=== PATIENT | male | born 1945 | race Caucasian/White ===

== ENCOUNTER → 2017-02-27 | Outpatient (CLI) | payer OTHER ==
[~2017-02-27] MED LIST: AMAN100T PO; ASCO500T16 PO; ASCO500T3 PO; ASPI325T39 PO; ATOR10TA82 PO; CMP/10 PO; FEXO5TAB2 PO; FLUT0.15 NAE; GABA1CAP5 PO; GLUC10007 PO; GLUCTAB7 PO; IPRA1AER2 INH; LEVO100T7 PO; LEVO1TAB33 PO; LEVO25TA5 PO; LEVO75TA5 PO; ONDA8TAB6 PO; PRED10TA PO; PRLSR20 PO; SALM50AE2 INH; SPRIN/30 INH; SRVDIN60 INH; TIOTCAP INH
--- NOTE | 2017-02-28 09:25 | DIAGNOSTIC IMAGING REPORT ---
PET/CT CLINICAL HISTORY: Head and neck cancer. TECHNIQUE: A PET/CT was performed from the skull vertex through the upper thighs following intravenous injection of 11.45 mCi of F 18 FDG IV. The injection was performed at 10:29 AM on February 27, 2017 and imaging began at 11:32 AM on February 27, 2017. Unenhanced CT was performed for attenuation correction purposes and anatomic localization. COMPARISON STUDY: PET/CT March 23, 2016. FINDINGS: Head and neck: No suspicious FDG uptake is identified within the neck. The FDG avid right level 2 mass shown on exam of March 23, 2016 is no longer visualized. There is subtle infiltration within the right aspect of the neck. This is likely post therapeutic. No mucosal lesion is identified although these may be occult by CT. Diffuse uptake within the thyroid gland which is enlarged is unchanged and prior exam. No enlarged cervical lymph nodes are present. Chest: No suspicious FDG uptake is identified within the chest. There are calcified left hilar lymph nodes. Mild symmetric FDG uptake within bilateral hilar lymph nodes is unchanged since prior PET/CT. No suspicious pulmonary nodules are present. Abdomen and Pelvis: No abnormal FDG uptake is identified within the abdomen or the pelvis. A gastrostomy tube is in place. There is no abdominal or pelvic lymphadenopathy. Musculoskeletal: No suspicious skeletal uptake is identified. IMPRESSION: No evidence for recurrent FDG avid malignancy. Electronically signed by: Ramón Ridley M.D. 02/28/2017 9:23 AM Dictated Date/Time: 02/27/2017 12:47 PM
== END | disposition home or self-care (01) ==
LOC: C.PET 09:21
PROVIDERS: ATTEND Physician Assistant Medical
DX: C09.8 Malignant neoplasm of overlapping sites of tonsil (principal)

== ENCOUNTER → 2017-03-08 | Outpatient (CLI) | payer OTHER ==
[2017-03-08 13:43] VITALS: BP 104/56; PULSE 66; TEMP 36.7; O2SAT 95
--- NOTE | 2017-03-08 15:55 | Radiation Oncology Follow-Up ---
Radiation Oncology Follow-Up Date of Visit Mar 08, 2017. (Lizzy Barnett PA-C) Reason For Visit Four-month follow-up (Lizzy Barnett PA-C) Radiation Completion Date finished 09-06-2016 (Lizzy Barnett PA-C) Diagnosis (1) Head and neck cancer Onset Date: 03/10/2016 Stage: lll Permanent Comment: STAGING: Oropharynx, right tonsil, SCC, p16 positive, [id number], stage III TREATMENT: 1. Robotic tonsillectomy (TORS) - 04/15/2016 - Dr. Topete 2. Right neck dissection - 05/02/2016 - Dr. Topete 3. Status post completion of radiation therapy 09/06/2016 received 6000 cGy Last Edited By: Lizzy Barnett on Nov 08, 2016 16:46 (Lizzy Barnett PA-C) History of Present Illness Mr. Lincoln is a 71-year-old gentleman with a smoking history who recently presented with right-sided neck pain and had an MRI of the cervical neck completed on 01/27/2016 which did reveal a some degenerative changes in the spine as well as spinal stenosis and more importantly revealed a 2.2 cm nodule in the right neck. He subsequently underwent a CT of the neck on 02/08/2016 which showed subtle thickening of the right posterior oral pharyngeal mucosa as well as confirmation of a 2.8 cm nonenhancing right level IIa mass consistent with a pathologic lymph node. No other cervical adenopathy was noted on the CT scan. The patient was referred to Dr. Lepe from ENT who recommended a interventional radiology guided biopsy. The patient was taken for an ultrasound -guided biopsy in 03/10/2016 which confirmed a well-differentiated squamous cell carcinoma. He subsequently underwent a PET/CT scan on 03/23/2016 which revealed: "1. A 17 x 20 mm soft tissue density in the anterior right neck posterior to the submandibular gland and likely corresponding to the lesion recently biopsied by ultrasound. This demonstrates significant FDG avidity and is presumably neoplastic. 2. Diffuse nonspecific activity within the thyroid bilaterally of questionable significance. 3. Slight increased activity in both hilar regions likely related to central pulmonary vessels." The patient subsequently saw the multidisciplinary prospective head and neck cancer clinic on 04/07/2016. The final recommendation was for consideration of a transoral robotic resection if the right tonsil came back positive and also a potential right neck dissection. Of note, the plan was to initially do random biopsies as it was still a unknown primary with the high likelihood that the right tonsil was positive and the patient within subsequently undergo a transoral robotic surgery which was completed on 04/15/2016. The patient underwent a transoral robotic resection of the right tonsil on 04/15/2016 after the biopsy of the right tonsil came back positive for squamous cell carcinoma. Pathology revealed squamous cell carcinoma that was p16 positive that involved the right tonsil. The pathology specimen did not specifically mention margin status otherwise. The patient then subsequently underwent a right neck dissection on 05/02/2016 which included levels 1B, 2A-4, 2B, 1A. A total of 31 lymph nodes were resected. Pathology revealed one positive lymph node in level 2A that measured 2.7 cm in the greatest dimension with no evidence of extranodal extension or positive margins. The case was subsequently discussed at the head and neck tumor board and the recommendation was for adjuvant radiation therapy based on the interpretation of the primary surgical resection specimen and the positive cervical lymph node in the right neck. We are now seeing the patient in consultation to discuss the role of radiation therapy. Currently, the patient doing relatively well overall. He states he is healing up well from surgery. He is on a solid diet again. His weight is increasing. His appetite is good overall. He has regained taste. He does have some soreness in his right neck from surgery still. Otherwise he is doing well overall. Patient underwent adjuvant radiation therapy and was completed 09/06/2016. He received 6000 cGy (Lizzy Barnett PA-C) Interim History Over the past 4 months he has slowly increased his energy levels. He still does have significant fatigue. He states he is improved by 20%. He had stopped into the office a week ago to discuss his PET scan results. We reviewed how he was doing from a nutrition standpoint. He had been taking in nearly 100% of his nutrition through the PEG tube. I reviewed with him that he would need to cut back in order to begin to eat on his own. This would allow him to have a feeling of hunger and want to eat on his own. He has cut back on the tube feeding and is beginning to eat more on his own. He did have a mild weight loss. He increased the tube feeding. He'll continue to try to take in more by mouth. He is not having difficulty with coughing or choking. He does take small bites into his food well. He also drinks water to rinse the fluid down. He did have a swallow study that showed no aspiration when he was at [facility]. His thyroid function study did show that he has hypothyroidism. Dr. Cordero has started replacement and the medication has been increased once. He is for recheck laboratory studies in March. He saw Dr. Topete 12/19/2016. He states that he was pleased with his outcome. Patient continues to decline scopings. He refused to allow Dr. Topete to perform scoping examination. And he stated he'll will not allow our office also to perform scoping examinations. He stated that his PET scan is normal therefore he is satisfied with that evaluation. (Lizzy Barnett PA-C) Allergies Coded Allergies: No Known Allergies (Unverified , 07/07/16) Home Medications Scheduled Ascorbic Acid (Ascorbic Acid), 1,000 MG PO DAILY Aspirin (Aspirin Ec), 0.5 TAB PO DAILY Atorvastatin (Lipitor), 0.5 TAB PO DAILY Gabapentin (Neurontin), 1 CAP PO BID Glucosamine Sulfate (Glucosamine), 1,000 MG PO BID Levothyroxine Sodium (Levothyroxine Sodium), 1 TAB PO DAILY Prednisone Tab (Prednisone), 10 MG PO DIRECTED Salmeterol Xinafoate Inh (Serevent Diskus Inh), 1 PUFF INH BID Tiotropium [place] (Spiriva Handihaler), 1 CAP INH DAILY Scheduled PRN Fexofenadine-Pseudoephedrine (Kya-D 12 Hour Allergy), 1 TAB PO BID PRN for Nasal Congestion Ipratropium-Albuterol (Combivent Respimat), 1 PUFFS INH QID PRN for SOB/Wheezing Levofloxacin (Levaquin), 500 MG PO DAILY PRN for Shortness of Breath Omeprazole (Prilosec), 20 MG PO DAILY PRN for Indigestion Review of Systems Gastrointestinal: Symptoms: Vomiting GI Comments: was having vomiting due to thick mucus in throat , getting better Oral: Symptoms: Scant Saliva/Dry Mouth, Saliva amt. Increased, Thick/Viscid/Mucid Saliva Other Oral Symptoms: baking soda and salt water mouth rinses 2 times a day Respiratory: Symptoms: SOB With Exertion Other Respiratory: " I have COPD " Urinary: Symptoms: Nocturia Comments: nocturia 0- 1 times Skin: Symptoms: No Problems Other Skin Symptoms: " skin feels tight on right side of neck " (Lizzy Barnett PA-C) Physical Exam Vital Signs Date Time Temp Pulse Resp B/P Pulse Ox O2 Delivery O2 Flow Rate FiO2 03/08/17 13:43 36.7 66 20 104/56 95 Pain: Side: Bilateral Patient Pain Scale: 0 - 10 Initial Pain Intensity: 0.0 Fatigue: None General Appearance: no apparent distress Eyes: normal inspection, EOMI ENT: normal ENT inspection, hearing grossly normal, TMs normal, + pertinent finding (trismus which causes difficulty with examination of the pharynx.) Neck: no adenopathy, thyroid normal Respiratory/Chest: lungs clear, no respiratory distress, no accessory muscle use Cardiovascular: regular rate, rhythm, no gallop, no murmur Neurologic/Psychiatric: no motor/sensory deficits, alert, normal mood/affect Skin: warm/dry Lymphatic: no adenopathy (Lizzy aBrnett PA-C) Additional Studies Patient: AMILCAR LINCOLN Address1: [address] [place] [address] Rec: [id number] Address2: Acct ID: [id number] [facility] Zip: [place] [address] Date: 1945 Sex: M Room/Bed: Ref Phy: Mendez Cordero D.O. SC: C.PET Att Phy: Lizzy Barnett PA-C Report #: [id number] [place] Phy: Mendez Cordero D.O. Test: PETCTST Admit Phy: Music Supervisor: JAMARI Interpreting Phy: Ramón Ridley MD Diagnosis: HEAD AND NECK CA Ordering Phy: Lizzy Barnett PA-C Service Date: 02/27/17 Admit Date: 02/27/17 MNE: [id number] CONF: DICTATED BY: Ramón Ridley MD]] CC: Lizzy Barnett PA-C Sulman, Scott A., D.O. Endcc: [~ rep ct add3]] PET/CT CLINICAL HISTORY: Head and neck cancer. TECHNIQUE: A PET/CT was performed from the skull vertex through the upper thighs following intravenous injection of 11.45 mCi of F 18 FDG IV. The injection was performed at 10:29 AM on February 27, 2017 and imaging began at 11:32 AM on February 27, 2017. Unenhanced CT was performed for attenuation correction purposes and anatomic localization. COMPARISON STUDY: PET/CT March 23, 2016. FINDINGS: Head and neck: No suspicious FDG uptake is identified within the neck. The FDG avid right level 2 mass shown on exam of March 23, 2016 is no longer visualized. There is subtle infiltration within the right aspect of the neck. This is likely post therapeutic. No mucosal lesion is identified although these may be occult by CT. Diffuse uptake within the thyroid gland which is enlarged is unchanged and prior exam. No enlarged cervical lymph nodes are present. Chest: No suspicious FDG uptake is identified within the chest. There are calcified left hilar lymph nodes. Mild symmetric FDG uptake within bilateral hilar lymph nodes is unchanged since prior PET/CT. No suspicious pulmonary nodules are present. Abdomen and Pelvis: No abnormal FDG uptake is identified within the abdomen or the pelvis. A gastrostomy tube is in place. There is no abdominal or pelvic lymphadenopathy. Musculoskeletal: No suspicious skeletal uptake is identified. IMPRESSION: No evidence for recurrent FDG avid malignancy. Electronically signed by: Ramón Ridley M.D. 02/28/2017 9:23 AM Dictated Date/Time: 02/27/2017 12:47 PM (Lizzy Barnett PA-C) Assessment & Plan Plan: Patient was seen and examined today by Dr. Shanks. He did have a vasovagal episode in our office when having examination of the neck. His vital signs were repeated every 5 minutes. The syncopal episode resolved without difficulty. Serial blood pressures were 121/64, 113/55, and 166/68. Serial pulses were 73, 74, and 71. Also oximetry was 99%, 99%, 98%. This occurred with the patient sitting in a chair. He did not fall or have any injury from this episode. We had previously reviewed his PET/CT. He is going to continue to cut back on tube feedings and take more nutrition by mouth. He will continue to follow his weight closely. He is going to have a recheck of the thyroid function study in March. is adjusting the thyroid medication. His daughter was with him here today. She had access to his [facility] information. We reviewed his thyroid function studies. He is currently concerned also about tremor he has of the left hand. He previously had B-12 injections. We reviewed his most recent CBC which did not show any signs of B-12 deficiency. I've asked him to review this issue with . He did have a carotid Doppler studies prior to treatment. This showed no stenosis. We'll plan to recheck again at some point in the future. We asked him to return to our office in 6 months. He will have a recheck CT of the neck prior to that visit. (Lizzy Barnett PA-C) Of note, during clinical evaluation of left neck adenopathy, the patient suffered a near vasovagal syncopal episode from massaging the left carotid body but returned to normal within one minute. Vital signs were checked initially and then again 5 minutes later and they were all within normal limits. The patient was alert, oriented x 3 and had no focal neurologic symptoms or deficits. The patient was reassured prior to leaving the department. I agree with note created by Lizzy Barnett PA-C. I reviewed the patient's chart and information with her. I have examined and evaluated the patient. I reviewed relevant clinical information and answered the patient's and/or family' s questions. (Veeral. Shanks MD) Total Time In Follow-Up I spent 25 minutes speaking to the patient performing examination. I spent 15 minutes reviewing information in completing this note. (Lizzy Barnett PA-C) I spent 15 minutes examining and counseling the patient. (Veeral. Shanks MD) Copy To Waldo Topete D.O.; Mendez Cordero D.O.
== END | disposition home or self-care (01) ==
LOC: C.ONC 13:37
PROVIDERS: ATTEND Physician Assistant Medical
DX: Z08 Encounter for follow-up examination after completed treatment for malignant neoplasm (principal); Z92.3 Personal history of irradiation; Z85.89 Personal history of malignant neoplasm of other organs and systems

== ENCOUNTER → 2017-08-07 | Day surgery (SDC) | payer OTHER ==
[2017-07-21 13:24] VITALS: Ht 171.5 cm; Wt 71.4 kg
[~2017-08-07] VITALS: Ht 171.5 cm; Wt 71.4 kg
[~2017-08-07] MED LIST changes: -ASCO500T16 PO; -ATOR10TA82 PO; +ATOR10TA88 PO; -CMP/10 PO; -FEXO5TAB2 PO; -GLUC10007 PO; -LEVO1TAB33 PO; -LEVO25TA5 PO; -LEVO75TA5 PO; -ONDA8TAB6 PO; -PRED10TA PO; -PRLSR20 PO; -SALM50AE2 INH; -TIOTCAP INH
--- NOTE | 2017-08-07 11:53 | Endo History and Physical ---
History & Physical Date of Service: Aug 07, 2017. Chief Complaint: PEG TUBE NO LONGER NEEDED Referring Physician: Dr. Cordero History of Present Illness 72 yo CM who presents for PEG Tube removal as PEG tube is no longer needed. Past Medical History Osteoporosis, Arthritis, Fractures, Asthma, Reflux, Cancer, High Cholesterol, COPD Past Surgical History Hx Cardiac Surgery: No Hx Internal Defibrillator: No Hx Pacemaker: No Hx Abdominal Surgery: No Hx of Implantable Prosthesis: No Hx Post-Op Nausea and Vomiting: No Hx Cancer Surgery: Yes (RT TONSIL REMOVED, LYMPH NODE REMOVAL) Hx Thoracic Surgery: No Hx Orthopedic: Yes (LUMBAR LAMINECTOMY) Hx Urinary Tract Surgery: No Family History Colon CA Social History Smoking Status: Former Smoker Hx Substance Use: No Hx Alcohol Use: No Allergies Coded Allergies: No Known Allergies (Unverified , 07/21/17) Current Medications Reported Home Medications Medications Dose Route/Sig Max Daily Dose Days Date Category Vitamin C (Ascorbic Acid) 500 Mg Tab 1 Tab PO QAM 07/21/17 Reported Glucosamine Chondroitin (Vcbnuzrhfzx-Sugorammpkz-Haz C-) 1 Tab Tab 1 Tab PO BID 07/21/17 Reported Aspirin Ec (Aspirin) 325 Mg Tab 0.5 Tab PO QAM 07/21/17 Reported Combivent Respimat (Ipratropium-Albuterol) 1 Aer Aer 1 Puffs INH QID PRN 07/21/17 Reported Neurontin (Gabapentin) 400 Mg Cap 400 Mg PO BID 07/21/17 Reported Lipitor (Atorvastatin Calcium) 10 Mg Tab 5 Mg PO HS 07/21/17 Reported Spiriva Handihaler (Tiotropium [place]) 30 Puff/540 Mcg Aerp 1 Cap INH QAM 07/21/17 Reported Flonase Allergy Relief (Fluticasone Propionate (Nasal)) 50 Mcg/Act Spr 1 [place] POWER DAILY PRN 07/21/17 Reported Symmetrel (Amantadine HCl) 100 Mg Tab 100 Mg PO BID 07/21/17 Reported Serevent Diskus (Salmeterol Xinafoate) 50 Mcg Aerp 1 Puff INH BID 07/21/17 Reported Levothyroxine Sodium 100 Mcg Tab 1 Tab PO QPM 90 07/21/17 Reported Vital Signs Weight (Kilograms): 71.36 Height (Feet): 5 Height (Inches): 7.5 Date Time Temp Pulse Resp B/P (MAP) Pulse Ox O2 Delivery O2 Flow Rate FiO2 08/07/17 11:09 36.4 73 18 139/97 (111) 98 Physical Exam General Appearance: WD/WN, no apparent distress Respiratory/Chest: Auscultation: breath sounds normal Cardiovascular: Heart Auscultation: RRR Abdomen: Bowel Sounds: normal Inspection & Palpation: soft, non-distended, no tenderness, guarding & rebound Assessment and Plan Assessment: 72 yo CM who presents for PEG Tube removal as PEG tube is no longer needed. Plan: Proceed with PEG tube removal
[2017-08-07 11:59] VITALS: BP 145/90; PULSE 79; TEMP 36.4; O2SAT 98
--- NOTE | 2017-08-07 12:05 | Discharge Instructions ---
Endoscopy Patient Instructions Date / Procedure(s) Performed Aug 07, 2017. Other Allergy Information Coded Allergies: No Known Allergies (Unverified , 07/21/17) Discharge Date / Findings Aug 07, 2017. Successful removal of PEG tube Medication Instructions OK to resume all medications today as prescribed Reported Home Medications Medications Dose Route/Sig Max Daily Dose Days Date Category Vitamin C (Ascorbic Acid) 500 Mg Tab 1 Tab PO QAM 07/21/17 Reported Glucosamine Chondroitin (Mwdtfrnqdcz-Yksrostbdry-Bfn C-) 1 Tab Tab 1 Tab PO BID 07/21/17 Reported Aspirin Ec (Aspirin) 325 Mg Tab 0.5 Tab PO QAM 07/21/17 Reported Combivent Respimat (Ipratropium-Albuterol) 1 Aer Aer 1 Puffs INH QID PRN 07/21/17 Reported Neurontin (Gabapentin) 400 Mg Cap 400 Mg PO BID 07/21/17 Reported Lipitor (Atorvastatin Calcium) 10 Mg Tab 5 Mg PO HS 07/21/17 Reported Spiriva Handihaler (Tiotropium [place]) 30 Puff/540 Mcg Aerp 1 Cap INH QAM 07/21/17 Reported Flonase Allergy Relief (Fluticasone Propionate (Nasal)) 50 Mcg/Act Spr 1 [place] POWER DAILY PRN 07/21/17 Reported Symmetrel (Amantadine HCl) 100 Mg Tab 100 Mg PO BID 07/21/17 Reported Serevent Diskus (Salmeterol Xinafoate) 50 Mcg Aerp 1 Puff INH BID 07/21/17 Reported Levothyroxine Sodium 100 Mcg Tab 1 Tab PO QPM 90 07/21/17 Reported Provider Instructions Activity Restrictions - No exercising or heavy lifting for 24 hours. - Do not drink alcohol the day of the procedure. - Do not drive a car or operate machinery until the day after the procedure. - Do not make any important decisions or sign important papers in 24 hours after the procedure. Following Day: - Return to full activity which may include returning to work/school. Diet Start your diet with liquids and light foods (jello, soup, juice, toast). Then eat your usual diet if not nauseated. Treatment For Common After Affects For mild abdominal pain, bloating, or excessive gas: - Rest - Eat lightly - Lie on right side Follow-Up Information Follow-up with PCP as scheduled Anesthesia Information What You Should Know You have had a procedure that required some medicine to reduce anxiety and discomfort. This treatment is called moderate sedation. After receiving the treatment, you may be sleepy, but you will be able to breathe on your own. The effects of the treatment may last for several hours. Follow these instructions along with Activity/Diet recommendations noted above: * Do NOT do anything where dizziness or clumsiness would be dangerous. * Rest quietly at home today, then you can be up and about tomorrow. * Have a responsible person stay with you the rest of today. * You may have had an I.V. today. If so, you may take the dressing off later today. Recommendations Call your doctor if: * Trouble breathing * Continuous vomiting for more than 24 hours * Temperature above 101 degrees * Severe abdominal pain or bloating * Pain not relieved by pain medicine ordered * There is increased drainage or redness from any incision * A large amount of rectal bleeding greater than 2-3 tablespoons. (If you had a polyp/s removed or have hemorrhoids, a small amount of blood - from the rectum is to be expected.) * You have any unanswered questions or concerns. IN THE EVENT OF A SERIOUS EMERGENCY, GO TO THE NEAREST EMERGENCY ROOM Your discharge instructions were prepared by provider Inocencio Moody. Patient Instructions Signature Page Jack Lincoln Patient (or Guardian) Signature/Date: I have read and understand the instructions given to me by my caregivers. Caregiver/RN/Doctor Signature/Date: The above-named patient and/or guardian has received patient instructions on this date. + Original Patient Signature Page (only) stays with chart. Please make copy for patient.
--- NOTE | 2017-08-07 14:24 | GI REPORT ---
Procedure Date: 08/07/2017 2:22 PM Procedure: Non-endoscopic Tube Procedure Indications: Remove PEG tube (no longer needed) Medicines: None Complications: No immediate complications. Estimated Blood Loss: Estimated blood loss: none. Procedure: After obtaining informed consent, the site was prepped and the procedure was performed. The procedure was accomplished without difficulty. The patient tolerated the procedure well. Findings: Due to an ability to resume oral intake, the patient no longer requires the gastrostomy tube. The gastrostomy tube was no longer necessary and required removal. The existing PEG site was cleaned. The existing PEG balloon was deflated and by using traction, removal was easily accomplished. Impression: - The gastrostomy tube was removed because it was no longer necessary. - No specimens collected. Recommendation: - Advance diet as tolerated today. Inocencio Moody, DO 08/07/2017 2:23:53 PM This report has been signed electronically. Note Initiated On: 08/07/2017 2:22 PM I attest to the content of the Intraoperative Record and orders documented therein, exceptions below
== END | disposition home or self-care (01) ==
LOC: C.GI 10:48
PROVIDERS: ATTEND Internal Medicine
DX: Z43.1 Encounter for attention to gastrostomy (principal); M81.0 Age-related osteoporosis without current pathological fracture; J45.909 Unspecified asthma, uncomplicated; K21.9 Gastro-esophageal reflux disease without esophagitis; E78.00 Pure hypercholesterolemia, unspecified; J44.9 Chronic obstructive pulmonary disease, unspecified; Z87.891 Personal history of nicotine dependence; Z79.82 Long term (current) use of aspirin; Z79.899 Other long term (current) drug therapy

== ENCOUNTER → 2017-11-01 | Outpatient (CLI) | payer OTHER ==
[~2017-11-01] MED LIST changes: +ATOR10TA82 PO; -ATOR10TA88 PO; +OPTIRAY 320 IV PRN
--- NOTE | 2017-11-01 08:47 | DIAGNOSTIC IMAGING REPORT ---
CT SCAN OF THE NECK WITH IV CONTRAST CLINICAL HISTORY: Tonsillar cancer. COMPARISON STUDY: PET/CT dated 02/27/2017. TECHNIQUE: Following the IV administration of 92 cc of Optiray 320, CT scan of the soft tissues of the neck was performed from the skull base to the upper chest. Images are reviewed in the axial, sagittal, and coronal planes. IV contrast was administered without complication. A dose lowering technique was utilized adhering to the principles of ALARA. CT DOSE: 550.23 mGy.cm FINDINGS: Pharynx: Surgical clips are noted in the region of the right tonsil. No obvious mass lesion is seen. The pharyngeal airway is widely patent. The vocal cords are symmetric. There is mild infiltration of the parapharyngeal fat bilaterally, right greater than left. There is superficial mild soft tissue thickening seen in the right neck. The prevertebral/retropharyngeal soft tissues are within normal limits. Lymphadenopathy: No cervical lymphadenopathy is seen. Thyroid: Normal in size and attenuation. Salivary glands: The left submandibular gland is normal in appearance. The right-sided mandibular gland is not well visualized. The parotid glands are normal. Brain parenchyma: The visualized brain parenchyma at the skull base is normal in appearance. Vascular structures: Unremarkable. Skeletal structures: The skeletal structures are osteopenic. Imaged portions of the calvarium at the skull base are within normal limits. The cervical spine appears intact noting multilevel spondylosis. Sinuses and mastoids: The visualized paranasal sinuses are clear. The mastoid air cells are well pneumatized. Lung apices: Visualized apical lung parenchyma is clear. IMPRESSION: 1. There is no clear evidence of metastatic disease in the neck. 2. Surgical clips are suggested in the region of the right tonsil. No obvious mass lesion is seen. Additionally, there is mild infiltration of the parapharyngeal fat bilaterally, right greater than left as well as subcutaneous soft tissue thickening in the right neck. These findings are likely treatment related. Clinical correlation will be required. 3. No cervical lymphadenopathy is seen. 4. Additional findings as above. Electronically signed by: Joe Cook M.D. 11/01/2017 8:46 AM Dictated Date/Time: 11/01/2017 8:38 AM
== END | disposition home or self-care (01) ==
LOC: C.CTS 08:16
PROVIDERS: ATTEND Physician Assistant Medical
DX: C09.8 Malignant neoplasm of overlapping sites of tonsil (principal)

== ENCOUNTER → 2017-11-08 | Outpatient (CLI) | payer OTHER ==
[~2017-11-08] MED LIST changes: +GABA-1220 PO; -GABA1CAP5 PO; -OPTIRAY 320 IV PRN
[2017-11-08 13:25] VITALS: BP 102/52; PULSE 72; TEMP 36.5; O2SAT 98
--- NOTE | 2017-11-08 17:33 | Radiation Oncology Follow-Up ---
Radiation Oncology Follow-Up Date of Visit Nov 08, 2017. Reason For Visit Eight-month follow-up Radiation Completion Date 09/06/16 Diagnosis (1) Head and neck cancer Status: Resolved Onset Date: 03/10/2016 Permanent Comment: STAGING: Oropharynx, right tonsil, SCC, p16 positive, [id number], stage III TREATMENT: 1. Robotic tonsillectomy (TORS) - 04/15/2016 - Dr. Topete 2. Right neck dissection - 05/02/2016 - Dr. Topete 3. Status post completion of radiation therapy 09/06/2016 received 6000 cGy Last Edited By: Lizzy Barnett on Nov 08, 2016 16:46 History of Present Illness Mr. Lincoln has a smoking history who recently presented with right-sided neck pain and had an MRI of the cervical neck completed on 01/27/2016 which did reveal a some degenerative changes in the spine as well as spinal stenosis and more importantly revealed a 2.2 cm nodule in the right neck. He subsequently underwent a CT of the neck on 02/08/2016 which showed subtle thickening of the right posterior oral pharyngeal mucosa as well as confirmation of a 2.8 cm nonenhancing right level IIa mass consistent with a pathologic lymph node. No other cervical adenopathy was noted on the CT scan. The patient was referred to Dr. Lepe from ENT who recommended a interventional radiology guided biopsy. The patient was taken for an ultrasound-guided biopsy in 03/10/2016 which confirmed a well-differentiated squamous cell carcinoma. He subsequently underwent a PET/CT scan on 03/23/2016 which revealed: "1. A 17 x 20 mm soft tissue density in the anterior right neck posterior to the submandibular gland and likely corresponding to the lesion recently biopsied by ultrasound. This demonstrates significant FDG avidity and is presumably neoplastic. 2. Diffuse nonspecific activity within the thyroid bilaterally of questionable significance. 3. Slight increased activity in both hilar regions likely related to central pulmonary vessels." The patient subsequently saw the multidisciplinary prospective head and neck cancer clinic on 04/07/2016. The final recommendation was for consideration of a transoral robotic resection if the right tonsil came back positive and also a potential right neck dissection. Of note, the plan was to initially do random biopsies as it was still a unknown primary with the high likelihood that the right tonsil was positive and the patient within subsequently undergo a transoral robotic surgery which was completed on 04/15/2016. The patient underwent a transoral robotic resection of the right tonsil on 04/15/2016 after the biopsy of the right tonsil came back positive for squamous cell carcinoma. Pathology revealed squamous cell carcinoma that was p16 positive that involved the right tonsil. The pathology specimen did not specifically mention margin status otherwise. The patient then subsequently underwent a right neck dissection on 05/02/2016 which included levels 1B, 2A-4, 2B, 1A. A total of 31 lymph nodes were resected. Pathology revealed one positive lymph node in level 2A that measured 2.7 cm in the greatest dimension with no evidence of extranodal extension or positive margins. The case was subsequently discussed at the head and neck tumor board and the recommendation was for adjuvant radiation therapy based on the interpretation of the primary surgical resection specimen and the positive cervical lymph node in the right neck. We are now seeing the patient in consultation to discuss the role of radiation therapy. Currently, the patient doing relatively well overall. He states he is healing up well from surgery. He is on a solid diet again. His weight is increasing. His appetite is good overall. He has regained taste. He does have some soreness in his right neck from surgery still. Otherwise he is doing well overall. Patient underwent adjuvant radiation therapy and was completed 09/06/2016. He received 6000 cGy Interim History He's been doing well over the past 8 months. His appetite has improved. His weight is stable. He is eating most any foods other than meat. He still has some difficulty with swallowing meats. The feeding tube was removed. He stated there was discomfort at the time of removal which quickly resolved. The opening healed without difficulty. He had no problems with drainage. He continues regular follow-up with Dr. Topete. He did have a scoping in August. There is been no signs recurrence. He also had a recheck CT of the neck on as follow-up. There is no evidence of metastatic disease in the neck. There are post treatment changes that are noted. There is no cervical lymphadenopathy. In general he feels he is getting stronger. He unfortunately has been diagnosed with Parkinson's disease. He has a tremor in his arms. He is being seen by the neurologist. He he has started a new medication. He feels that it is helping. Allergies Coded Allergies: No Known Allergies (Unverified , 07/21/17) Home Medications Scheduled Amantadine Hcl (Symmetrel), 100 MG PO TID Ascorbic Acid (Vitamin C), 1 TAB PO QAM Aspirin (Aspirin Ec), 0.5 TAB PO QAM Atorvastatin (Lipitor), 5 MG PO HS Gabapentin (Neurontin), 400 MG PO BID Hiftstdjsqq-Agxmpiumaps-Tcb C- (Glucosamine Chondroitin), 1 TAB PO BID Levothyroxine Sodium (Levothyroxine Sodium), 1 TAB PO QPM Salmeterol Xinafoate (Serevent Diskus), 1 PUFF INH BID Tiotropium Lee (Spiriva Handihaler), 1 CAP INH QAM Scheduled PRN Fluticasone Propionate (Nasal) (Flonase Allergy Relief), 1 SPRAY POWER DAILY PRN for PRN Ipratropium-Albuterol (Combivent Respimat), 1 PUFFS INH QID PRN for Shortness of Breath Review of Systems Gastrointestinal: Symptoms: WNL Oral: Other Oral Symptoms: Eats what he want;Small bites;need to drink freq w/ eating; Respiratory: Symptoms: Dry Cough, SOB With Exertion, Productive Cough Respiratory Comments: Less phlegm than previously Sputum Character: Clear sputum when cough productive; Other Respiratory: Has COPD - no changes; Urinary: Symptoms: WNL Skin: Symptoms: No Problems Physical Exam Vital Signs Date Time Temp Pulse Resp B/P (MAP) Pulse Ox O2 Delivery O2 Flow Rate FiO2 11/08/17 13:25 36.5 72 16 102/52 98 Fatigue: None General Appearance: no apparent distress Eyes: normal inspection, EOMI ENT: normal ENT inspection, hearing grossly normal, pharynx normal, + pertinent finding (he has trismus. There are no visible or palpable lesions of the oral pharynx. There is no erythema or ulcerations.) Neck: no adenopathy, thyroid normal Respiratory/Chest: lungs clear, no respiratory distress, no accessory muscle use Cardiovascular: regular rate, rhythm, no gallop, no murmur Abdomen: non tender, soft, + pertinent finding (well healed insertion site from previous feeding tube.) Extremities: no pedal edema, + pertinent finding (tremor of the hands) Neurologic/Psychiatric: no motor/sensory deficits, alert, normal mood/affect, + pertinent finding (flat affect) Skin: warm/dry Pain Management Patient Reports Pain: No Pain Location: None Patient Preferred Pain Scale: 0 - 10 Initial Pain Intensity: 0.0 Pain Management Plan He has no pain therefore requires no pain management. Laboratory Laboratory Results: not applicable Pathology Pathology Results: not applicable Imaging Imaging Studies: were reviewed, and pertinent findings noted below Imaging Comments Patient: AMILCAR LINCOLN Address1: [address] Rec: [id number] Address2: Acct ID: [id number] [facility] Zip: [place] [address] Date: 1945 Sex: M Room/Bed: Ref Phy: Mendez Cordero D.O. SC: C.CTS Att Phy: Lizzy Barnett PA-C Report #: [id number] [place] Phy: Mendez Cordero D.O. Test: NCKW Admit Phy: Bricklayer Helper: LUL Interpreting Phy: Joe Cook M.D. Diagnosis: HX OF TONSIL CA Ordering Phy: Lizzy Barnett PA-C Service Date: 11/01/17 Admit Date: 11/01/17 MNE: [id number] CONF: DICTATED BY: Joe Cook M.D.]] CC: Lizzy Barnett PA-C Sulman, Scott A., D.O. Endcc: [~ rep ct add3]] CT SCAN OF THE NECK WITH IV CONTRAST CLINICAL HISTORY: Tonsillar cancer. COMPARISON STUDY: PET/CT dated 02/27/2017. TECHNIQUE: Following the IV administration of 92 cc of Optiray 320, CT scan of the soft tissues of the neck was performed from the skull base to the upper chest. Images are reviewed in the axial, sagittal, and coronal planes. IV contrast was administered without complication. A dose lowering technique was utilized adhering to the principles of ALARA. CT DOSE: 550.23 mGy.cm FINDINGS: Pharynx: Surgical clips are noted in the region of the right tonsil. No obvious mass lesion is seen. The pharyngeal airway is widely patent. The vocal cords are symmetric. There is mild infiltration of the parapharyngeal fat bilaterally, right greater than left. There is superficial mild soft tissue thickening seen in the right neck. The prevertebral/retropharyngeal soft tissues are within normal limits. Lymphadenopathy: No cervical lymphadenopathy is seen. Thyroid: Normal in size and attenuation. Salivary glands: The left submandibular gland is normal in appearance. The right-sided mandibular gland is not well visualized. The parotid glands are normal. Brain parenchyma: The visualized brain parenchyma at the skull base is normal in appearance. Vascular structures: Unremarkable. Skeletal structures: The skeletal structures are osteopenic. Imaged portions of the calvarium at the skull base are within normal limits. The cervical spine appears intact noting multilevel spondylosis. Sinuses and mastoids: The visualized paranasal sinuses are clear. The mastoid air cells are well pneumatized. Lung apices: Visualized apical lung parenchyma is clear. IMPRESSION: 1. There is no clear evidence of metastatic disease in the neck. 2. Surgical clips are suggested in the region of the right tonsil. No obvious mass lesion is seen. Additionally, there is mild infiltration of the parapharyngeal fat bilaterally, right greater than left as well as subcutaneous soft tissue thickening in the right neck. These findings are likely treatment related. Clinical correlation will be required. 3. No cervical lymphadenopathy is seen. 4. Additional findings as above. Electronically signed by: Joe Cook M.D. 11/01/2017 8:46 AM Dictated Date/Time: 11/01/2017 8:38 AM Assessment & Plan He was seen and examined by Dr. Shanks. He'll continue regular follow-up with Dr. Topete and his primary care physician. He'll be continuing follow-up with the neurologist. There are adjusting his medications for the newly diagnosed Parkinson's disease. We asked him to return to our office in 6 months. He may call if he has any questions or concerns in the interim. Assessment & Plan (Attending) ADDENDUM: I agree with note created by Lizzy Barnett PA-C. I reviewed the patient's chart and information with her. I have examined and evaluated the patient. I reviewed relevant clinical information and answered the patient's and /or family's questions. FINANCIAL COMPLIANCE MANAGER Total Time In Follow-Up I spent 20 minutes speaking to the patient performing examination. I spent 15 minutes reviewing information and completeness note. Total Time (Attending) In Follow-Up I spent 15 minutes examining and counseling the patient. FINANCIAL COMPLIANCE MANAGER Copy To Waldo Topete D.O.; Mendez Cordero D.O.
== END | disposition home or self-care (01) ==
LOC: C.ONC 13:04
PROVIDERS: ATTEND Physician Assistant Medical
DX: Z08 Encounter for follow-up examination after completed treatment for malignant neoplasm (principal); Z92.3 Personal history of irradiation; Z85.89 Personal history of malignant neoplasm of other organs and systems